=== PATIENT | female | born 1985 | race Asian ===

== ENCOUNTER → 2020-12-24 10:44 | Outpatient (CLI) | payer OTHER, SELFPAY ==
--- NOTE | 2020-12-24 10:46 | DI.US.S_ITS ---
PROCEDURE: US OB <= 14 WEEKS FETUS INDICATIONS: Initial dating and viability. OUTSIDE/PRIOR DATING DATA: Last menstrual period (LMP): 09/22/2020. LMP-based estimated date of delivery (JOSELO): 06/29/2021. First dating scan (date and location): 12/24/2020. Estimated date of delivery (JOSELO) from first dating scan: 06/22/2021. TECHNIQUE: Real-time scanning was performed of the fetus and maternal pelvic organs, with image documentation. Endovaginal scanning was also performed to better visualize the fetus and maternal ovaries. COMPARISON: None. FINDINGS: [place]-rump length 8.4 centimeters, corresponding to gestational age of 14 weeks 2 days. heart rate 150 beats per minute. Measurement variability in dating: +/- 4 weeks by LMP, +/- 7 days by mean sac diameter (use before 6 weeks gestation if crown-rump length not able to be measured), +/- 5 days by crown-rump length (up to 8 weeks 6 days gestation), +/- 7 days by crown-rump length (up to 13 weeks 6 days gestation). Maternal organs: Cervical length 4.5 centimeters. Ovaries unremarkable. IMPRESSION: Single live intrauterine gestation with estimated ultrasound age of 14 weeks 2 days. Dictated by: Victorino Monzon M.D. on 12/24/2020 at 11:24 Approved by: Victorino Monzon M.D. on 12/24/2020 at 11:26
[2020-12-24 11:46] LABS: Add Manual Diff / Slide Review NO; Basophils Absolute Auto 0 /uL (0-100); Basophils Percent Auto 0.3 % (0-2); Eosinophils Absolute Auto 300 /uL (0-450); Eosinophils Percent Auto 3.4 % (2-4); Hematocrit 37.3 % (36-46); Hemoglobin 12.3 g/dL (12.0-16.0); Lymphocytes Absolute Auto 2000 /uL (1100-4500); Lymphocytes Percent Auto 20.1 % (25-40); Mean Corpuscular HGB Conc 32.9 % (30-36); Mean Corpuscular Hemoglobin 29.2 PG (26-34); Mean Corpuscular Volume 88.6 fL (80-100); Monocytes Absolute Auto 700 /uL (0-900); Monocytes Percent Auto 6.4 % (3-14); Neutrophils Absolute Auto 7100 /uL (1500-7000); Neutrophils Percent Auto 69.8 % (50-75); Platelet Count 315 X10^3/uL (150-400); Red Blood Cell Count 4.21 X10^6/uL (4.0-5.2); Red Cell Distribution Width 13.5 % (11.6-14.8); White Blood Cell Count 10.2 X10^3/uL (4.5-11.0)
[2020-12-24 12:44] LABS: Appearance Urine UA CLEAR; Bilirubin Urine UA NEGATIVE (NEGATIVE); Color Urine UA YELLOW; Glucose Urine UA NEGATIVE (Negative); Ketones Urine UA TRACE (NEGATIVE); Leukocyte Esterase Urine UA NEGATIVE (NEGATIVE); Nitrite Urine UA NEGATIVE (Negative); Occult Blood Urine UA NEGATIVE (Negative); Protein Urine UA NEGATIVE (Negative); Urobilinogen Urine UA 0.2 E.U./dL (0.2); pH Urine UA 6.5 (4.5-8.0)
[2020-12-25 06:11] LABS: Varicella IgG Antibody 841 index (Immune >165)
[2020-12-25 07:46] LABS: RPR Screen Non Reactive (Non Reactive)
[2020-12-25 16:01] LABS: Hepatitis B Surface Antigen NEGATIVE s/c (NEGATIVE)
[2020-12-25 16:16] LABS: HIV 1 & 2 Ab/Ag 4th Gen Combo NEGATIVE (NEGATIVE); Hep C Virus Ab w/Reflex Quant NEGATIVE s/c (NEGATIVE)
== END ==
PROVIDERS: Referring Provider Obstetrics & Gynecology; Visit Provider Obstetrics & Gynecology
DX: Z34.81 Encounter for supervision of other normal pregnancy, first trimester (principal); Z3A.14 14 weeks gestation of pregnancy
CPT/HCPCS: 36415; 76801; 80055; 81003; 86787; 86803; 86850; 86900; 86901; 87086; 87389

== ENCOUNTER → 2021-01-23 14:15 | Outpatient (CLI) | payer OTHER, SELFPAY ==
[2021-01-26 14:36] LABS: Gest Age on Col Date 17.6 weeks (.); Insulin Dep Diabetes No (.); OSBR Risk 1IN 6301 (.); Results Report (.); Test Results *Screen Negative* (.)
== END ==
PROVIDERS: Referring Provider Obstetrics & Gynecology; Visit Provider Obstetrics & Gynecology
DX: O09.522 Supervision of elderly multigravida, second trimester (principal); Z36.0 Encounter for antenatal screening for chromosomal anomalies; Z3A.17 17 weeks gestation of pregnancy
CPT/HCPCS: 36415; 81420; 82105

== ENCOUNTER → 2021-02-18 12:02 | Outpatient (CLI) | payer OTHER, SELFPAY ==
--- NOTE | 2021-02-18 12:03 | DI.US.S_ITS ---
PROCEDURE: US OB >= 14 WEEKS FETUS INDICATIONS: 20 Week Anatomy Scan OUTSIDE/PRIOR DATING DATA: Last menstrual period (LMP): 09/22/2020. LMP-based estimated date of delivery (JOSELO): 06/30/2011. First dating scan (date and location): 12/24/2020. Estimated date of delivery (JOSELO) from first dating scan: 06/22/2021. TECHNIQUE: Real-time scanning was performed of the fetus, with image documentation and biometric measurements. Endovaginal scanning: No COMPARISON: [facility], OB <= 14 WEEKS FETUS, 12/24/2020, 10:56. FINDINGS: General: A single living intrauterine gestation is present. Presentation: Cephalic Placenta: Placental position is anterior , without previa. Amniotic fluid index: 12.5 cm, normal range is 5-24 cm. heart rate: 153 beats per minute. Maternal cervical canal: 3.9 cm long. Normal lower limit is 2.5 cm. biometrics: Biparietal diameter: 52 mm; 21 weeks 5 days Head circumference: 193 mm; 21 weeks 4 days Abdominal circumference: 170 mm; 22 weeks 0 days Femur length: 38 mm; 22 weeks 1 day Clinically estimated gestational age: 22 weeks 2 days Composite gestational age from present scan: 21 weeks 6 days Estimated weight and percentile: 465 g, which is at the 28th percentile for gestational age Anatomic survey: Neuro: Ventricles are non-dilated at less than 10 mm. Cisterna magna is normal at 3-11 mm. Cerebellum is normal in size and morphology. Nuchal skin fold: Nuchal fold measures 10 mm in thickness. Face: Nose and lips, facial profile are normal. Spine: No evidence for spina bifida. Heart: 4-chambered heart is present, with normal ventricular outflow tracts. Diaphragm: Diaphragm is intact. Stomach: Left-sided stomach is present. Kidneys: No hydronephrosis. Normal is less than 5 mm in 2nd trimester, less than 7 mm in 3rd trimester. Cord: 3-vessel cord has orthotopic insertion. Bladder: Normal in size. Extremities: All 4 extremities identified. IMPRESSION: 1. Single living intrauterine gestation. 2. Enlarged nuchal fold measurement. Follow-up ultrasound and clinical evaluation is recommended for further assessment. We strive to produce accurate, complete, and clear reports of imaging services. To assist us in improving patient care, this report was composed using standard report templates and voice recognition software. Therefore, it may contain abnormal punctuation, insertions and/or omissions. Occasional wrong-word or sound-alike substitutions may occur. Though we review the report and make efforts to correct it, we do recommend that the report be read carefully in proper context to recognize any text inaccuracies. Dictated by: Leatha Restrepo M.D. on 02/18/2021 at 14:38 Approved by: Leatha Restrepo M.D. on 02/18/2021 at 14:43
== END ==
PROVIDERS: Referring Provider Obstetrics & Gynecology; Visit Provider Obstetrics & Gynecology
DX: Z34.82 Encounter for supervision of other normal pregnancy, second trimester (principal); Z3A.22 22 weeks gestation of pregnancy
CPT/HCPCS: 76811

== ENCOUNTER → 2021-05-18 09:08 | Outpatient (CLI) | payer OTHER, SELFPAY ==
--- NOTE | 2021-05-18 09:09 | DI.US.S_ITS ---
PROCEDURE: US OB FOLLOW UP INDICATIONS: SGA OUTSIDE/PRIOR DATING DATA: Last menstrual period (LMP): 09/22/2020 LMP-based estimated date of delivery (JOSELO): 06/29/2021 First dating scan (date and location): 12/24/2020 Estimated date of delivery (JOSELO) from first dating scan: 06/22/2021 The calculations are made using the ultrasound JOSELO of 06/22/2021 TECHNIQUE: Real-time scanning was performed of the fetus, with image documentation and biometric measurements. Endovaginal scanning: Performed for better visualization of the cervix. COMPARISON: [facility], OB >= 14 WEEKS FETUS, 02/18/2021, 12:32. FINDINGS: General: A single living intrauterine gestation is present. Presentation: Vertex Placenta: Placental position is anterior, without previa. Amniotic fluid index: 10.8 cm cm, normal range is 5-24 cm. Single deepest vertical pocket is 4.1 cm. heart rate: 157 beats per minute. Maternal cervical canal: 4.1 cm long. Normal lower limit is 2.5 cm. biometrics: Biparietal diameter: 8.9 cm, 36 weeks 0 days Head circumference: 31.5 cm, 35 weeks 3 days Abdominal circumference: 31.4 cm, 35 weeks 2 days Femur length: 6.8 cm, 34 weeks 6 days Clinically estimated gestational age: 35 weeks 0 days Composite gestational age from present scan: 35 weeks 3 days Estimated weight and percentile: 2637 grams, 55th percentile Other: Nuchal area is not well visualized. IMPRESSION: 1. Single live intrauterine with appropriate interval growth. 2. Estimated weight 2637 grams, 55th percentile for gestational age. 3. Amniotic fluid index within normal limits. We strive to produce accurate, complete, and clear reports of imaging services. To assist us in improving patient care, this report was composed using standard report templates and voice recognition software. Therefore, it may contain abnormal punctuation, insertions and/or omissions. Occasional wrong-word or sound-alike substitutions may occur. Though we review the report and make efforts to correct it, we do recommend that the report be read carefully in proper context to recognize any text inaccuracies. Dictated by: Tobin Khan M.D. on 05/18/2021 at 13:32 Approved by: Tobin Khan M.D. on 05/18/2021 at 13:36
== END ==
PROVIDERS: Referring Provider Obstetrics & Gynecology; Visit Provider Obstetrics & Gynecology
DX: O26.843 Uterine size-date discrepancy, third trimester (principal); Z3A.35 35 weeks gestation of pregnancy
CPT/HCPCS: 76816

== ENCOUNTER 2021-06-28 11:38 | Outpatient (CLI) | payer OTHER, SELFPAY | END 2021-06-28 12:29 | disposition home or self-care (01) | LOC: LABOR 11:47 → OB 06-30 15:14 | PROVIDERS: PCP Obstetrics & Gynecology; Referring Provider Obstetrics & Gynecology; Visit Provider Obstetrics & Gynecology | DX: Z03.71 Encounter for suspected problem with amniotic cavity and membrane ruled out (principal); Z3A.39 39 weeks gestation of pregnancy | CPT/HCPCS: 84112; G0378; G0379 ==

== ENCOUNTER 2021-06-29 09:33 | Outpatient (CLI) | payer OTHER, SELFPAY | END 2021-06-29 10:10 | disposition home or self-care (01) | LOC: LABOR 10:16 → OB 07-13 09:26 | PROVIDERS: PCP Obstetrics & Gynecology; Referring Provider Obstetrics & Gynecology; Visit Provider Obstetrics & Gynecology | DX: O47.1 False labor at or after 37 completed weeks of gestation (principal); Z3A.40 40 weeks gestation of pregnancy; O48.0 Post-term pregnancy | CPT/HCPCS: 59025; G0378; G0379 ==

== ENCOUNTER 2021-06-30 15:39 | Inpatient (IN) | payer OTHER, SELFPAY ==
[2021-06-30 19:20] LABS: COVID19 -Nasal RAPID Negative (Negative)
--- NOTE | 2021-06-30 19:42 | P.HPOB_ITS ---
OB HPI Date/Time Date of admission: 06/30/21 Date Patient Seen: 06/30/21 Time Patient Seen: 19:42 History of Present Condition Chief complaint: LABOR : 2 Para: 1 Estimated Date of Delivery: 06/29/21 Estimated Gestational Age (weeks): 40+1 Narrative: Geovanna Sheikh is a 35 year old JOSELO 06/29/2021 admitted this evening with SROM @ 1800 and RUC. GBS negative. course uneventful thus far. Indications Other reason(s) for admission: Latent phase labor with SROM @ 1800 06/30/2021 History of Present care: good care Dating criteria: LMP confirmed by 1st trimester US Ultrasounds: normal 1st trimester US and normal mid trimester US Obstetrical complications: none Medical complications: none Preadmission Labs Blood type: O (+) positive -: Antibody screen: negative, GBS status: negative, HBsAG: negative, HIV: negative and RPR/VDLR: negative -: Chlamydia screen: not detected and Gonorrhea screen: not detected -: Rubella: immune and Varicella: immune HCT: 37.3 HCAB: negative PAP: Normal Narrative: 1 hr. GDM screen declined by patient Prior (ies) History: x 1; no complications or issues Evaluation Evaluation Baseline heart rate: 140 Variability: Moderate (11-25) monitor accelerations: Present Monitor Decelerations: Absent Contraction Frequency (minutes): 5 Uterine Contraction Intensity: Moderate Category of Tracing: Reactive Status: Category l Dilation (cm): 3 Effacement (%): 80 Dilation: 3-4 cm Effacement: >/=80% station: -2 Position of cervix: posterior Consistency: soft Hernandez score: 8 Non-invasive Membranes Rupture Test: positive [facility] Medical History (Updated 06/24/21 @ 11:31 by Grey Kennedy MD) Anemia (~2000) Family history of diabetes mellitus GERD (gastroesophageal reflux disease) (~2003) Seasonal allergies Family History (Updated 12/18/20 @ 13:04 by Zuleika Nazario RN) Mother Hypertension Arthritis Diabetes mellitus Father Diabetes mellitus Kidney failure Hyperlipidemia Grandmother Ascites Grandfather Hypertension Aneurysm Grandmother No problems noted. Grandfather Unknown family medical history Sister Diabetes mellitus Social History marital status: number of children: 1 household members: family and children lives independently: Yes caregiver/support person: No housing: apartment pets and animals: Yes (Guinea pigs. 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 ) substance use type: does not use during the past year weight has: remained stable well-balanced diet: about half the time daily servings fruits/ve-1 caffeine: Yes (Stopped coffee with - aversion. Occasional soda. ) Type(s) of exercise: walking and normal ROM and activity frequency: daily duration: 30-45 minutes/day Meds Home Medications and Allergies Home Medications Medication Instructions Recorded Confirmed Type prenat.vits,jaswant,xsm-bdfo-wzhms 1 tab PO DAILY 12/18/20 06/30/21 History Allergies Allergy/AdvReac Type Severity Reaction Status Date / Time No Known Drug Allergies Allergy Verified 05/20/21 10:54 Review of Systems Review of Systems Narrative: Problem-specific ROS positives included in HPI OB Exam HENMT Head: normal to inspection, normocephalic and atraumatic Eyes General: appearance normal, both eyes and all related structures Resp Effort & Inspection: normal respiratory effort and able to speak in complete sentences Auscultation: clear to auscultation bilaterally Cardio Rate: regular rate Rhythm: regular rhythm Heart Sounds: S1 normal and S2 normal Uterus Location (Fundal Height): 35 Estimated Weight (lbs): 8 Amniotic Fluid: clear Objective Labs Result Diagrams: 06/30/21 19:30 Labs: Laboratory Results - last 24 hr 06/30/21 19:00 SARS-CoV-2 (PCR) Negative Assessment and Plan Assessment and Plan Assessment and Plan narrative: ASSESSMENT 1. Intrauterine gestation, [place], vertex, 40+ 1 weeks gestational age 2. SROM, 1800, for 02/2022 3. GBS negative status PLAN 1. Admit for labor and delivery 2. Expectant management of labor; patient does not desire CIRO or other inte rventions if they are not absolutely necessary 3. See orders Time Spent with Patient Total time spent with greater than 50% in coordination of care (as documented) at patient's floor/unit and/or counseling patient:: less than 15 minutes
[2021-06-30 19:45] LABS: Hematocrit 37.7 % (36-46); Hemoglobin 12.9 g/dL (12.0-16.0); Mean Corpuscular HGB Conc 34.3 % (30-36); Mean Corpuscular Hemoglobin 29.8 PG (26-34); Platelet Count 267 X10^3/uL (150-400); Red Blood Cell Count 4.33 X10^6/uL (4.0-5.2); Red Cell Distribution Width 14.1 % (11.6-14.8); White Blood Cell Count 12.3 X10^3/uL (4.5-11.0)
[2021-06-30 19:48] LABS: Add Manual Diff / Slide Review YES
[2021-06-30 20:03] LABS: Neutrophils Absolute Manual 9594 /uL (3000-5900); Total Cells Counted 100
[2021-06-30] MEDS: fentaNYL 100 MCG/2 ML INJ 50 MCG IV ×2 (21:35→22:35)
[2021-06-30] MEDS: LACTATED RINGERS 1,000 ML 100 ML IV (21:45)
[2021-07-01] MEDS: fentaNYL 100 MCG/2 ML INJ 50 MCG IV ×2 (00:13→03:55)
[2021-07-01] MEDS: LACTATED RINGERS 1,000 ML 100 ML IV ×2 (06:42→08:28)
--- NOTE | 2021-07-01 07:36 | PM.OBPNLAB ---
Date/Time Date Patient Seen: 07/01/21 Time Patient Seen: 07:20 Pain Control Pain control: narcotic analgesia Comments: Pain temporarily relieved with Fentanyl but patient is exhausted and contractions have spaced out through the night. Pelvic Exam Dilation (cm): 6 Effacement (%): 90 station: -1 Amniotic membrane status: Ruptured Contractions Contractions on admission: irregular Monitor mode: External Contraction frequency (min): 6 Contraction duration (min): 1 Contraction pattern: Irregular Contraction phase: Resting Contraction intensity: Moderate Status status: Category l Heart Rate Baseline: 135 Monitor Accelerations: Present Monitor Decelerations: Absent Monitor Variability: Moderate Comments: Minimal variability following Fentanyl doses Assessment and Plan Assessment: active labor Comments: Patient request CIRO for pain relief. Once she's comfortable, will begin augmentation.
[2021-07-01] MEDS: FENT 2MCG/ML BUPIV 0.125% EPI 200 MCG/100 ML PLAST..BAG 6 MCG EPIDURAL (08:10)
--- NOTE | 2021-07-01 10:00 | PM.AN.REGBLK ---
Regional Block Pre-procedure Procedure: Continuous Lumbar Epidural for L&D Attending OB provider: Grey Kennedy PMH/ROS narrative: term labor, no complications. Labs: Hct 37.7 % (36-46) 06/30/21 19:30 Plt Count 267 X10^3/uL (150-400) 06/30/21 19:30 Medications: Current Medications Generic Name Dose Route Start Last Admin Trade Name Freq PRN Reason Stop Dose Admin Carboprost Tromethamine 250 mcg 06/30/21 18:53 Carboprost 250 Mcg/Ml Ampul IM Q90M PRN Bleeding Fentanyl 50 mcg 06/30/21 20:32 07/01/21 03:55 Fentanyl 100 Mcg/2 Ml Inj IV 50 mcg Q1H PRN Administration Pain, Moderate (4-6) Lactated Ringer's 1,000 mls @ 100 mls/hr 06/30/21 19:00 07/01/21 08:28 Lactated Ringers IV 100 mls/hr CONT LUBNA Administration Oxytocin/Lactated Ringer's 30 unit in 500 mls @ 200 mls/hr 06/30/21 18:53 Oxytocin Premix IV CONT PRN Bleeding Protocol Tranexamic Acid 1,000 mg/ 100 mls @ 200 mls/hr 06/30/21 18:53 Sodium Chloride IV NOW PRN Bleeding Methylergonovine Maleate 0.2 mg 06/30/21 18:53 Methylergonovine 0.2 Mg Tablet PO Q6HR PRN Heavy Bleeding Methylergonovine Maleate 0.2 mg 06/30/21 18:53 Methylergonovine 0.2 Mg/Ml Vial IM NOW PRN Bleeding Misoprostol 800 mcg 06/30/21 18:53 Misoprostol 200 Mcg Tablet NH NOW PRN Bleeding Misoprostol 1,000 mcg 06/30/21 18:53 Misoprostol 200 Mcg Tablet NH NOW PRN Bleeding Misoprostol 400 mcg 06/30/21 18:53 Misoprostol 200 Mcg Tablet SL NOW PRN Bleeding Naloxone HCl 0.2 mg 06/30/21 20:32 Naloxone 0.4 Mg/Ml Vial IV Q2MIN PRN Opiate Reversal Oxytocin 10 unit 06/30/21 18:53 Oxytocin 10 Unit/Ml Vial IM NOW PRN Bleeding Allergies: Allergies Allergy/AdvReac Type Severity Reaction Status Date / Time No Known Drug Allergies Allergy Verified 05/20/21 10:54 Procedure Insertion date: 07/01/21 Insertion time: 08:00 Prep/Local: betadine x3 and 1% lidocaine Interspace: L3-4 Patient position: sitting Needle: 18 gauge Hustead (CSE: 27g pencan through Hustead, clear CSF, 1mL 0.25% bupiv MPF) Loss of resistance with: saline WALTER at (cm): 5 Catheter placed at SKIN (cm): 10 Catheter in SPACE (cm): 5 Insertion: No CSF, No Blood, No Paresthesia with insertion, No Paresthesia with injection and No Test dose reaction Initial Medications TEST DOSE time: 08:01 TEST DOSE: 1.5% lidocaine with epinephrine 1:200k (mL): 3 BOLUS DOSE time: 08:14 BOLUS DOSE (mL): 5 BOLUS DOSE med: other (infusate) Infusion INFUSION: 0.125% bupivacaine and with fentanyl 2 mcg/mL Initial rate (mL/hr): 6 Post-procedure Anesthesia time START: 07:48 Anesthesia time END: 13:50 Post-procedure Anesthesia Assessment: Yes CV function: HR/BP stable, Yes Resp function: RR/sat/airway adequate, Yes Mental status appropriate and No Anesthesia complications
[2021-07-01] MEDS: OXYTOCIN PREMIX 30 UNIT/500 ML PLAST..BAG IV (10:43)
--- NOTE | 2021-07-01 13:18 | PM.OBPNLAB ---
Date/Time Date Patient Seen: 07/01/21 Time Patient Seen: 12:50 Pain Control Pain control: tolerating well and epidural Comments: Patient is very comfortable Pelvic Exam Dilation (cm): 9 Effacement (%): 100 station: +1 Amniotic membrane status: Ruptured Comments: Small rim present at 2:00 a.m. Contractions Contractions on admission: irregular Monitor mode: External Pitocin rate (mU/min): 9 Contraction frequency (min): 3 Contraction duration (min): 1 Contraction pattern: Irregular Contraction phase: Resting Contraction intensity: Moderate Status status: Category ll Monitor Accelerations: Present Monitor Decelerations: Early, Episodic and Variable Monitor Variability: Minimal Assessment and Plan Assessment: induction ongoing Plan: continuous present management Comments: Will start pushing shortly and anticipate .
--- NOTE | 2021-07-01 14:27 | P.PCNOB_ITS ---
Labor & Delivery Delivery date: 07/01/21 Intrapartal Events: Hypotonic Dysfunction Cervical ripening method: none Induction method: none Delivery augmentation: pitocin Delivery monitor: external FHT and external uterine Route of delivery: Episiotomy description: None L&D Laceration Description: Perineal - 2nd Degree Estimated blood loss (mL): 250 Anesthesia Type: Epidural Complications: None Narrative: Patient admitted on the evening of 06/30/2021 and initially planned minimal intervention labor. Patient allowed to labor spontaneously after SROM at 1800 on 06/30/2021 but contractions lessened and no significant change was noted in her cervical exam. On the morning of 07/01/2021 however the patient requested epidural anesthesia and Pitocin augmentation was initiated. Patient entered the 2nd stage and after a brief 2nd stage delivered spontaneously over an intact perineum a viable male infant with Apgars of 9/9, weight 3370 g (7 lb 6.9 oz). A single cord around the neck was noted and reduced after delivery of the infant. No shoulder dystocia was experienced. The placenta was delivered spontaneously with gentle cord traction and found to be intact with 3 vessels. Skin to skin contact was initiated immediately following delivery and delayed cord clamping utilized. Once the umbilical cord was doubly clamped and cut, a cord blood specimen was obtained for routine studies. During the course of delivery the patient sustained deep second-degree perineal laceration along the lines of a prior left mediolateral episiotomy. Repair was accomplished in the usual fashion with 2-0 chromic catgut suture and 2-0 Vicryl interrupted stitch to reconstruct the perineal body. The sphincter was intact and did not require repair but a large internal hemorrhoid was seen to have prolapsed thro ugh the anus and apparently the hemorrhoid has been present for quite some time and was actually present prior to her 1st delivery. At the completion of the repair, reapproximation of all perineal tissues was excellent with minimal bruising. Mother and infant tolerated the delivery process well. Estimated blood loss was approximately 250 cc and no complications were experienced. [place] Baby 1: Infant gender: Male Presentation: vertex Position: Left Occiput Anterior Placenta delivery description: Spontaneous Cord Vessel Description: 3 Vessels and Nuchal Cord score (1 min): 9 score (5 min): 9 weight: 7 lb 6.873 oz Plan for aftercare: Routine care
[2021-07-01] MEDS: IBUPROFEN 600 MG TABLET PO ×2 (17:21→23:29)
[2021-07-01] MEDS: DOCUSATE 100 MG CAPSULE 200 MG PO (17:21)
[2021-07-02 05:01] LABS: Add Manual Diff / Slide Review NO; Basophils Absolute Auto 0 /uL (0-100); Basophils Percent Auto 0.1 % (0-2); Eosinophils Absolute Auto 100 /uL (0-450); Eosinophils Percent Auto 0.6 % (2-4); Hematocrit 29.3 % (36-46); Hemoglobin 9.8 g/dL (12.0-16.0); Lymphocytes Absolute Auto 2800 /uL (1100-4500); Lymphocytes Percent Auto 12.5 % (25-40); Mean Corpuscular HGB Conc 33.6 % (30-36); Mean Corpuscular Hemoglobin 29.3 PG (26-34); Mean Corpuscular Volume 87.1 fL (80-100); Monocytes Absolute Auto 1900 /uL (0-900); Monocytes Percent Auto 8.6 % (3-14); Neutrophils Absolute Auto 17700 /uL (1500-7000); Neutrophils Percent Auto 78.2 % (50-75); Platelet Count 238 X10^3/uL (150-400); Red Blood Cell Count 3.36 X10^6/uL (4.0-5.2); Red Cell Distribution Width 14.2 % (11.6-14.8); White Blood Cell Count 22.7 X10^3/uL (4.5-11.0)
[2021-07-02] MEDS: IBUPROFEN 600 MG TABLET PO (06:25)
[2021-07-02] MEDS: DOCUSATE 100 MG CAPSULE 200 MG PO (11:27)
[2021-07-02] MEDS: ACETAMINOPHEN 325 MG TABLET 650 MG PO (11:27)
--- NOTE | 2021-07-02 13:18 | P.DS_ITS ---
Discharge Providers Provider Date of admission: 06/30/21 15:39 Discharge Date: 07/02/21 Primary care physician: Grey Kennedy MD Consults: 07/01/21 16:34 Consult to General Surgery Routine Comment: Consulting Provider: [facility] Reason for consultation: Large prolapsed internal hemorrhoid; needs eval and F/U plan. Thanks. Has provider been notified: No 07/02/21 14:22 Consult to Strategy Execution Consultant Routine Comment: Discharge provider: Grey Kennedy MD Summary Hospital Course Date Patient Seen: 07/02/21 Time Patient Seen: 13:05 Diagnoses: Intrauterine gestation, Parish, 40+2 weeks EGA, delivered Internal hemorrhoids Hospital Course: Geovanna Sheikh is a 35 year old JOSELO 06/29/2021 admitted this evening with SROM @ 1800 and RUC. GBS negative. course uneventful.? The patient was permitted to enter spontaneous labor but she had minimal cervical change and on the morning of 06/30/2021 she opted for placement of a epidural and labor which provided excellent relief and Pitocin augmentation was initiated.?Patient admitted on the evening of 06/30/2021 and initially planned minimal intervention labor.? With augmentation, patient entered the 2nd stage and after a brief 2nd stage delivered spontaneously over an intact perineum a viable male infant with Apgars of 9/9, weight 3370 g (7 lb 6.9 oz).? At the time of delivery, a large prolapsed internal hemorrhoid was noted which reduced spontaneously following delivery.? Surgical consult placed but patient could not be seen prior discharge. ?Following delivery, the patient has experienced a prompt return of bowel and bladder function, she is ambulating independently, tolerating regular diet, and her pain is well controlled with oral pain medications.? She will be discharged at this time to home in an afebrile normotensive condition after being counseled regarding precautionary symptoms, limitations of activity, medications, and plans for follow-up.? Medications at discharge will include ibuprofen 600 mg p.o. every 6 hours and Colace 200 mg p.o. b.i.d. times 30 days.? Follow-up will be in 6 weeks or as needed and arrangements for her to be seen by surgery as an outpatient will be made by our office. Peripartum Data Infant Delivery Method: Natural Vaginal Laceration Description: Perineal - 2nd Degree Episiotomy description: None Procedures: Vaginal OB Delivery Continuous lumbar epidural complications: none 1: Gender: Male Disposition of : home Status at Discharge Cognitive/behavioral status at discharge: oriented Functional status at discharge: independent ambulation Overall status at discharge: patient is progressing back to baseline Time Spent with Patient Time attestation: Total time spent providing and/or coordinating discharge services: Time spent: Less than 30 minutes Objective Labs Result Diagrams: 07/02/21 04:37 Labs: Laboratory Results - last 24 hr 07/02/21 04:37 WBC 22.7 H D RBC 3.36 L Hgb 9.8 L Hct 29.3 L MCV 87.1 MCH 29.3 MCHC 33.6 RDW 14.2 Plt Count 238 Neut % (Auto) 78.2 H Lymph % (Auto) 12.5 L [place] % (Auto) 8.6 Eos % (Auto) 0.6 L Baso % (Auto) 0.1 Neut # (Auto) 80448 H Lymph # (Auto) 2800 [place] # (Auto) 1900 H Eos # (Auto) 100 Baso # (Auto) 0 Exam Const General: cooperative and comfortable Nutritional Appearance: average body habitus Orientation: alert and oriented x3 HENMT Head: normal to inspection, atraumatic and abrasion Ears: hearing grossly normal bilaterally Face and sinus: face symmetric Eyes General: appearance normal, both eyes and all related structures Conjunctivae: conjunctivae normal Sclera: sclerae normal EOM: EOM intact bilaterally Neck Neck: normal visual inspection Resp Effort & Inspection: normal respiratory effort and able to speak in complete sentences Auscultation: clear to auscultation bilaterally Cardio Rate: regular rate Rhythm: regular rhythm Heart Sounds: S1 normal, S2 normal and no murmurs GI Inspection: normal to inspection Palpation: soft and no hepatosplenomegaly Rectal Exam: visual inspection normal and other (Prolapsed hemorrhoid remains r educed) External Female Exam: other (Perineum intact, early healing with minimal bruising, lochia minimal) Extrem General: no calf tenderness Psych Appearance: grossly normal Mental Status: mental status grossly normal Speech and Movement: speech and movement normal Mood: congruent mood Affect: normal affect Attitude: cooperative Thought Process: normal Thought Content: normal Judgment: judgment good Discharge Plan Discharge Plan Patient Disposition: Home Provider Discharge Comment: Carefully review the written instructions you received when you were discharged from the hospital. Your follow-up appointment with me will be scheduled for 6 weeks following delivery and I look forward to seeing you then. If in the meanwhile however you have any issues, concerns, or problems, please feel free to contact me via the patient portal or through the office phone number [phone]. Discharge orders & Medications Prescriptions: New docusate sodium 100 mg Capsule 200 mg PO BID 30 Days Qty: 120 1RF ibuprofen 600 mg Tablet 600 mg PO Q6HR PRN (Reason: Pain, Mild (1-3)) Qty: 60 1RF Continued prenat.vits,jaswant,[id number] Tablet 1 tab PO DAILY 0RF No Action ketorolac 10 mg tablet 10 mg PO Q8H PRN (Reason: pain) Qty: 20 0RF Rx Instructions: take with food and water omeprazole magnesium 20 mg tablet,delayed release (DR/EC) 20 mg PO DAILY Qty: 20 0RF oxycodone-acetaminophen [Percocet] 5-325 mg tablet 1 tab PO Q8H PRN (Reason: pain) Qty: 14 0RF hydrocortisone 2.5 % cream 1 applic topical BID PRN (Reason: hemorrhoid) Qty: 28.35 0RF acetaminophen [Tylenol Arthritis Pain] 650 mg tablet extended release 650 mg PO Q6HR Qty: 30 0RF Follow up/Referrals: Grey Kennedy MD [Primary Care Provider] - (Follow up with Dr. Kennedy on @ 1000am) Discharge Health Status Multidrug resistant organism: No MDRO Diet/Activity/Treatments Diet: Diet as Tolerated Activity: As tolerated Skin/Wound/Dressing Care Report to your healthcare provider any signs of infection, such as:: chills, fever, increased pain, unusual drainage and unusual redness Dressing: N/A Visit Report/Discharge Packet Instructions: DI for Labor and Delivery, Vaginal , DI for and Nipple Soreness Stand Alone Forms: Discharge: Care Discharge Data Primary Care Provider: Grey Kennedy
[2021-07-02 14:56] VITALS: BP 109/69; PULSE 91; RESP 17; TEMP 36.8
== END 2021-07-02 15:40 | disposition home or self-care (01) | DRG 807 ==
PROVIDERS: Admitting Provider Obstetrics & Gynecology; PCP Obstetrics & Gynecology; Referring Provider Obstetrics & Gynecology; Visit Provider Obstetrics & Gynecology
DX: O42.02 Full-term premature rupture of membranes, onset of labor within 24 hours of rupture (principal); Z37.0 Single live birth; Z3A.40 40 weeks gestation of pregnancy; O48.0 Post-term pregnancy; O70.1 Second degree perineal laceration during delivery; O99.891 Other specified diseases and conditions complicating pregnancy; K64.8 Other hemorrhoids; O69.81X0 Labor and delivery complicated by cord around neck, without compression, not applicable or unspecified; Z20.822 Contact with and (suspected) exposure to COVID-19
CPT/HCPCS: 01967; 36415; 59025; 59050; 59400; 84112; 85007; 85025; 86850; 86900; 86901; 87635; C9803; G0378; G0379; J2590; J3010

== ENCOUNTER 2021-07-05 13:58 | Emergency (ER) | payer OTHER, SELFPAY ==
[2021-07-05 14:07] VITALS: BP 125/78; PULSE 86; RESP 18; TEMP 36.4; O2SAT 100; BMI 26.0
--- NOTE | 2021-07-05 14:14 | ED_ITS ---
HPI - Skin/Abscess/Foreign Bdy <Denita Andersen, FOOTWEAR SALES COORDINATOR - Last Filed: 07/05/21 19:09> General Chief complaint: Skin/Abscess/Foreign Body Stated complaint: prolapsed hemmorroid Time Seen by Provider: 07/05/21 14:14 Source: patient Mode of arrival: Ambulatory Limitations: no limitations History of Present Illness HPI narrative: This is a 35-year-old female who had a normal vaginal delivery on 07/02/2021 who presents to the emergency department today for complications with an internal and prolapsed hemorrhoid which is increasing in size and causing worsening pain. Patient states it is approximately the size of a golf ball, she was to follow-up with a general surgeon after delivery for removal of this, the surgeon reportedly did not see the patient while she was in the hospital, she presents 3 days after vaginal delivery infant for ongoing pain, inability to sit down, walking, having bowel movements. Patient's OBGYN is Dr. Kennedy. Patient states that she has tried topical lidocaine which has not helped, she is taking ibuprofen 800 mg every 6 hours, she is currently , has tried ice a couple times, denies any discharge from the hemorrhoid, states it is soft and not hard. She states that all movement is painful, she is not sleeping well due to the pain. Related Data Home Medications Medication Instructions Recorded Confirmed prenroxy.vits,jaswant,[id number] 1 tab PO DAILY 12/18/20 06/30/21 Previous Rx's Medication Instructions Recorded docusate sodium 100 mg capsule 200 mg PO BID 30 Days #120 cap 07/02/21 ibuprofen 600 mg tablet 600 mg PO Q6HR PRN #60 tab 07/02/21 acetaminophen 650 mg 650 mg PO Q6HR #30 tab 07/05/21 tablet,extended release (Tylenol Arthritis Pain) hydrocortisone 2.5 % topical cream 1 applic TOPICAL BID PRN #28.35 g 07/05/21 hydrocortisone acetate 25 mg 25 mg KS BID 14 Days #24 ea 07/05/21 rectal suppository ketorolac 10 mg tablet 10 mg PO Q8H PRN #20 tab 07/05/21 omeprazole magnesium 20 mg 20 mg PO DAILY #20 tab 07/05/21 tablet,delayed release oxycodone-acetaminophen 5 mg-325 1 tab PO Q8H PRN #14 tab 07/05/21 mg tablet (Percocet) prednisone 20 mg tablet 20 mg PO DAILY 5 Days #5 tab 07/05/21 Allergies Allergy/AdvReac Type Severity Reaction Status Date / Time No Known Drug Allergies Allergy Verified 05/20/21 10:54 Review of Systems <SINDI Mobley - Last Filed: 07/05/21 19:09> Review of Systems Narrative: General: denies fever, chills, malaise, sweats, fatigue Head/Neck: denies headache, neck pain, dizziness Eyes: denies visual changes, eye pain Cardio: denies chest pain, palpitations, edema Respiratory: denies dyspnea, cough, orthopnea GI: denies abdominal pain, nausea, vomiting, or diarrhea : denies dysuria, hematuria, urinary retention, frequency or incontinence 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: Still having some vaginal spotting, dark brown in color, very large prolapsed hemorrhoid which is very tender, all positions are painful, lying down is the only position she tolerated MSK: denies joint pain, muscle weakness Skin: denies rash, itching, + large hemorrhoid Neuro: denies numbness, tingling Patient History <SINDI Mobley - Last Filed: 07/05/21 19:09> Medical History Anemia (~2000) Family history of diabetes mellitus GERD (gastroesophageal reflux disease) (~2003) Seasonal allergies Family History Mother Hypertension Arthritis Diabetes mellitus Father Diabetes mellitus Kidney failure Hyperlipidemia Grandmother Ascites Grandfather Hypertension Aneurysm Grandmother No problems noted. Grandfather Unknown family medical history Sister Diabetes mellitus Social History marital status: number of children: 1 household members: family and children lives independently: Yes caregiver/support person: No housing: apartment pets and animals: Yes (Guinea pigs. 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 ) substance use type: does not use during the past year weight has: remained stable well-balanced diet: about half the time daily servings fruits/ve-1 caffeine: Yes (Stopped coffee with - aversion. Occasional soda. ) Type(s) of exercise: walking and normal ROM and activity frequency: daily duration: 30-45 minutes/day Smoking Status: Never smoker Substance Use Type: does not use Exam <SINDI Mobley - Last Filed: 07/05/21 19:09> Narrative Exam Narrative: Independently reviewed vitals signs and nursing notes. General: cooperative, comfortable, in no acute distress, well developed and well groomed Head: atraumatic, symmetrical facial expressions Neck: supple, atraumatic, without lymphadenopathy. Eyes: pupils equal round and reactive, EOMI, conjunctiva normal Nose: nares patent, no rhinorrhea Mouth/Throat: uvula midline, moist mucus membranes Cardiovascular: regular rate and rhythm, no peripheral edema, warm extremities Respiratory: normal effort, able to speak in complete sentences, no audible wheezing, stridor, or rales. No retractions or tachypnea. GI: abdomen soft, nontender to palpation, nondistended, no masses, no exquisite tenderness with exam, without guarding or rebound. 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: Dark brown vaginal spotting, peripad in place, hemorrhoid is large, prolapse, soft, purple, tender to palpation, approximately the size of a golf ball, no open wound MSK: moves all extremities, ambulatory w/steady gait, neurovascularly intact, no weakness Skin: brisk capillary refill, no rash, no erythema Neuro: normal speech and cognition, A&O x3, normal tone Psych: mental status is grossly normal, congruent mood, normal affect, pleasant and cooperative Initial Vital Signs Initial Vital Signs: Vital Signs Temperature 97.6 F 07/05/21 14:07 Pulse Rate 86 07/05/21 14:07 Respiratory Rate 18 07/05/21 14:07 Blood Pressure 125/78 07/05/21 14:07 Pulse Oximetry 100 07/05/21 14:07 <Cyndi Baron DO - Last Filed: 07/07/21 07:24> Initial Vital Signs Initial Vital Signs: Vital Signs Temperature 97.6 F 07/05/21 14:07 Pulse Rate 86 07/05/21 14:07 Respiratory Rate 18 07/05/21 14:07 Blood Pressure 125/78 07/05/21 14:07 Pulse Oximetry 100 07/05/21 14:07 Course <SINDI Mobley - Last Filed: 07/05/21 19:09> Orders Ordered: Discontinued Medications Acetaminophen (Acetaminophen 325 Mg Tablet) 650 mg PO NOW ONE Stop: 07/05/21 14:39 Last Admin: 07/05/21 14:58 Dose: 650 mg Documented by: KATIA Hydrocortisone (Hydrocortisone 25 Mg Supp) 25 mg KS NOW ONE Stop: 07/05/21 14:37 Last Admin: 07/05/21 14:58 Dose: 25 mg Documented by: KATIA Hydrocortisone (Hydrocortisone 2.5% Cream 30 Gm) 1 applic TOP NOW ONE Stop: 07/05/21 14:38 Last Admin: 07/05/21 14:58 Dose: 1 applic Documented by: KATIA Oxycodone/Acetaminophen (Oxycodone/Acetaminophen 5/325 Tablet) 1 tab PO NOW ONE Stop: 07/05/21 14:39 Last Admin: 07/05/21 14:58 Dose: 1 tab Documented by: KATIA Oxycodone/Acetaminophen (Oxycodone/Apap 5/325 Prepack) 1 bottle MISC SEEINSTR ONE Stop: 07/05/21 15:32 Last Admin: 07/05/21 15:42 Dose: 1 bottle Documented by: KATIA Prednisone (Prednisone 20 Mg Tablet) 20 mg PO NOW ONE Stop: 07/05/21 14:50 Last Admin: 07/05/21 14:58 Dose: 20 mg Documented by: KATIA Consultations Consultation #1: Consult with Dr. Little who is on-call for General surgery who recommends topical measures with hydrocortisone cream, suppositories, Sitz baths and he would be willing to see her as an outpatient for surgical treatment as needed. Vital Signs Vital signs: Vital Signs - 8 hr 07/05/21 14:07 07/05/21 15:51 Temperature 97.6 F Pulse Rate 86 85 Respiratory Rate 18 16 Blood Pressure 125/78 122/88 Pulse Oximetry 100 99 <Cyndi Baron DO - Last Filed: 07/07/21 07:24> Orders Ordered: Discontinued Medications Acetaminophen (Acetaminophen 325 Mg Tablet) 650 mg PO NOW ONE Stop: 07/05/21 14:39 Last Admin: 07/05/21 14:58 Dose: 650 mg Documented by: KATIA Hydrocortisone (Hydrocortisone 25 Mg Supp) 25 mg KS NOW ONE Stop: 07/05/21 14:37 Last Admin: 07/05/21 14:58 Dose: 25 mg Documented by: KATIA Hydrocortisone (Hydrocortisone 2.5% Cream 30 Gm) 1 applic TOP NOW ONE Stop: 07/05/21 14:38 Last Admin: 07/05/21 14:58 Dose: 1 applic Documented by: KATIA Oxycodone/Acetaminophen (Oxycodone/Acetaminophen 5/325 Tablet) 1 tab PO NOW ONE Stop: 07/05/21 14:39 Last Admin: 07/05/21 14:58 Dose: 1 tab Documented by: KATIA Oxycodone/Acetaminophen (Oxycodone/Apap 5/325 Prepack) 1 bottle MISC SEEINSTR ONE Stop: 07/05/21 15:32 Last Admin: 07/05/21 15:42 Dose: 1 bottle Documented by: KATIA Prednisone (Prednisone 20 Mg Tablet) 20 mg PO NOW ONE Stop: 07/05/21 14:50 Last Admin: 07/05/21 14:58 Dose: 20 mg Documented by: KATIA Vital Signs Vital signs: Vital Signs - 8 hr 07/05/21 14:07 07/05/21 15:51 Temperature 97.6 F Pulse Rate 86 85 Respiratory Rate 18 16 Blood Pressure 125/78 122/88 Pulse Oximetry 100 99 MDM - Skin/Abscess/Foreign Bdy <SINDI Mobley - Last Filed: 07/05/21 19:09> MDM Narrative Medical decision making narrative: This is a 35-year-old female who is 3 days status post a vaginal delivery with a grade 2 vaginal laceration and a large internal hemorrhoid that has prolapsed who presents to the emergency department complaining of worsening pain, worsening swelling and this is affecting her daily life since she is not able to sit very easily and she is nursing a new burn. She is , is a , denies any red blood on her peripad, states that she is still spotting. On exam, patient does have a very large prolapsed hemorrhoid, it is soft to palpation, very tender, no open wound or discharge coming from the hemorrhoid. No surrounding erythema or signs of infection. Consultation with Dr. Little who recommends starting with topical hydrocortisone and padcicles Made of witch nasreen and frozen for cool relief. Patient was given a suppository in the emergency department, topical hydrocortisone was applied 2.5%, she is already on stool softeners, she was given oral Toradol and Percocet for pain, and a 5 day course of 20 mg each day prednisone. She was also given Prilosec for ulcer prevention while on steroids and anti-inflammatories. Patient understands the recommendations from surgery and from myself, she will follow-up with Dr. Kennedy and Dr. Little accordingly. Patient is appropriate and amenable to discharge home. Vital signs are stable on repeat examination is unremarkable. Patient has been informed of results. Patient has been given strict return to ER precautions for any new or worsening symptoms. Patient understands to follow up closely with outpatient providers as instructed. Patient understands plan and agrees to discharge home. All questions and concerns answered at this time. Discharge Plan Departure Patient Disposition: Home Clinical Impression: Hemorrhoid prolapse Instructions: Hemorrhoids Activity Restrictions/Additional Instructions: *You have been diagnosed with [a prolapsed internal hemorrhoid] I am sorry for how painful, frustrating, and uncomfortable that this must be for you at all times. Dr. Little from general surgery recommends to treat this with your topical measures including the suppositories, cream, anti-inflammatories, and oral steroid until this gets better and follow-up with him in the next 2-4 weeks. He says that these treatments usually improve symptoms so much that it is best to have a procedure to remove these at a point when they are not engorged. Since it is soft and not a thrombosed clot, it can be absorbed back into the body, and these topical measures should reduce the inflammation enough to allow that to go down. Please do Sitz baths 1 to 2 times a day, this is good for the vaginal laceration as well and will help heal the tissue. Please use the pain medicines as needed, try some padcicles made out of witch nasreen and place them in the freezer. Please take that Toradol every 6 hours as needed for pain, you may combine this with Tylenol 650 mg every 6 hours as needed for pain, in addition to these 2 things, you may take 1 Percocet every 6 hours as needed for your pain for maximum Tylenol dose of 4 g in 24 hours. Please follow-up with Dr. Kennedy at your next appointment, you may call and schedule an appointment with Dr. Little for evaluation of your internal hemorrhoids but he recommends trying these therapies to see how it goes down in at least 1 week before having surgery. He would be happy to see you at that point. Please return to the emergency department for any worsening of this, any difficulty with pain control, please continue to use your stool softeners. I hope you start feeling better soon. I will send your chart to Dr. Kennedy and to Dr. Little. I have sent omeprazole to the pharmacy to help protect her stomach while on steroids and anti-inflammatories. Please try to take all these kinds of medications with food and water, except for the omeprazole, take that 1st thing in the morning on an empty stomach. This will help prevent you from an ulcer and from any heartburn. *What to do: *Please continue to take your regular medications as directed. [ x] New medication prescriptions sent to your pharmacy: [ DOD] [ ] New medication written as a paper prescription [ ] No new medications given *Please follow up with your primary care provider in 2-3 days, call for an appointment. Let them know you were seen in the Emergency Department and that we asked that you be seen for follow-up. We will electronically transmit a record of today's note if your PCP is in our system *If you do not have a primary care provider please contact [phone] to establish care with one of [facility] primary care providers. *Return to Emergency Department if you should have any new, worsening or concerning symptoms, such as [fever greater than 101F, chills, worsening pain, persistent vomiting or other bothersome symptoms] Prescriptions: New hydrocortisone acetate 25 mg suppository 25 mg KS BID 14 Days Qty: 24 0RF ketorolac 10 mg tablet 10 mg PO Q8H PRN (Reason: pain) Qty: 20 0RF Rx Instructions: take with food and water prednisone 20 mg tablet 20 mg PO DAILY 5 Days Qty: 5 0RF omeprazole magnesium 20 mg tablet,delayed release (DR/EC) 20 mg PO DAILY Qty: 20 0RF oxycodone-acetaminophen [Percocet] 5-325 mg tablet 1 tab PO Q8H PRN (Reason: pain) Qty: 14 0RF hydrocortisone 2.5 % cream 1 applic topical BID PRN (Reason: hemorrhoid) Qty: 28.35 0RF acetaminophen [Tylenol Arthritis Pain] 650 mg tablet extended release 650 mg PO Q6HR Qty: 30 0RF No Action prenat.vits,jaswant,[id number] Tablet 1 tab PO DAILY 0RF docusate sodium 100 mg Capsule 200 mg PO BID 30 Days Qty: 120 1RF ibuprofen 600 mg Tablet 600 mg PO Q6HR PRN (Reason: Pain, Mild (1-3)) Qty: 60 1RF Referrals: Johny Little MD [Physician] - 3-5 days Grey Kennedy MD [Primary Care Provider] - <Cyndi Baron DO - Last Filed: 07/07/21 07:24> Cosign ED Attending Coszachature Attestation: I was immediately available in the department for consultation. Documentation has been reviewed. Patient's case was discussed agree with current plan.
[2021-07-05] MEDS: HYDROCORTISONE 25 MG SUPP PR (14:58)
[2021-07-05] MEDS: HYDROCORTISONE 2.5% CREAM 30 GM 1 APPLIC TOP (14:58)
[2021-07-05] MEDS: predniSONE 20 MG TABLET PO (14:58)
[2021-07-05] MEDS: OXYCODONE/ACETAMINOPHEN 5/325 TABLET 1 TAB PO (14:58)
[2021-07-05] MEDS: ACETAMINOPHEN 325 MG TABLET 650 MG PO (14:58)
[2021-07-05] MEDS: OXYCODONE/APAP 5/325 PREPACK 1 BOTTLE MISC (15:42)
[2021-07-05 15:51] VITALS: BP 122/88; PULSE 85; RESP 16; O2SAT 99
== END 2021-07-05 15:54 | disposition home or self-care (01) ==
PROVIDERS: Emergency Provider Nurse Practitioner Critical Care Medicine; PCP Obstetrics & Gynecology
DX: O87.2 Hemorrhoids in the puerperium (principal)
CPT/HCPCS: 99283

== ENCOUNTER 2024-05-07 10:36 | Emergency (ER) | payer OTHER, SELFPAY ==
[2024-05-07 11:05] VITALS: BP 122/61; PULSE 87; RESP 18; TEMP 36.3; O2SAT 100; BMI 26.4
--- NOTE | 2024-05-07 12:02 | ED_ITS ---
<Statement entered by Alvin Sampson DO - 05/07/24 12:52> Dr. Sampson: I was immediately available in the department for consultation. I did not actually see the patient. HPI - Skin/Abscess/Foreign Bdy General Chief complaint: Skin/Abscess/Foreign Body Stated complaint: Hemorrhoid pain Time Seen by Provider: 05/07/24 11:28 History of Present Illness HPI narrative: 38-year-old female with past medical history hemorrhoids presents to the ED with a flare-up of hemorrhoids. Patient states she has been recently been more constipated, has increased weightlifting exercises, which might be contributing to a flare-up. Patient states that she is unable to reduce the hemorrhoid which is now very painful. No bleeding. Patient has had a thrombosed hemorrhoid 2 years ago after delivering her baby. The thrombosed hemorrhoid had to be surgically incised by Dr. Little. Related Data Home Medications Medication Instructions Recorded Confirmed prenat.vits,jaswant,[id number] 1 tab PO DAILY 12/18/20 07/16/21 Previous Rx's Medication Instructions Recorded docusate sodium 100 mg capsule 200 mg (2 x 100 mg) PO BID 30 days 07/02/21 #120 caps ibuprofen 600 mg tablet 600 mg PO Q6HR PRN Pain, Mild 07/02/21 (1-3) #60 tabs acetaminophen 650 mg 650 mg PO Q6HR #30 tabs 07/05/21 tablet,extended release (Tylenol Arthritis Pain) hydrocortisone 2.5 % topical cream 1 applic topical BID PRN 07/05/21 hemorrhoid #28.35 grams ketorolac 10 mg tablet 10 mg PO Q8H PRN pain #20 tabs 07/05/21 omeprazole magnesium 20 mg 20 mg PO DAILY ulcer prevention 07/05/21 tablet,delayed release #20 tabs oxycodone-acetaminophen 5 mg-325 1 tab PO Q8H PRN pain #14 tabs 07/05/21 mg tablet (Percocet) hydrocortisone 2.5 % topical 1 applic topical BID 6 days #20 05/07/24 ointment grams hydrocortisone acetate 25 mg 25 mg MO BID 6 days #12 ea 05/07/24 rectal suppository Allergies Allergy/AdvReac Type Severity Reaction Status Date / Time No Known Drug Allergies Allergy Verified 04/28/22 15:46 Review of Systems Constitutional Constitutional: Denies chills, Denies fatigue, Denies fever(s), Denies frequent falls, Denies lethargy and Denies weakness Eyes Eyes: Denies change in vision, Denies eye discharge, Denies irritation and Denies loss of vision ENT Ears, Nose, Mouth, and Throat: Denies change in voice, Denies dizziness, Denies neck pain, Denies sore throat and Denies throat swelling Cardiovascular Cardiovascular: Denies chest pain, Denies irregular heart rhythm, Denies lightheadedness, Denies palpitations, Denies dyspnea, Denies dyspnea on exertion and Denies orthopnea Respiratory Respiratory: Denies cough, Denies dyspnea, Denies dyspnea on exertion and Denies wheezing Gastrointestinal Gastrointestinal: Denies abdominal pain, Denies change in bowel habits, Denies diarrhea, Denies nausea and Denies vomiting Comments: Painful hemorrhoid Musculoskeletal Musculoskeletal: Denies neck pain and Denies numbness Integumentary/Breasts Skin/Breast: Denies pruritus, Denies erythema, Denies rash and Denies wounds Neurologic Neurologic: Denies behavioral changes, Denies confusion, Denies dizziness, Denies frequent falls, Denies loss of vision, Denies numbness and Denies we akness Psychiatric Psychiatric: Denies anxiety, Denies behavioral changes, Denies confusion, Denies depression, Denies homicidal ideation and Denies suicidal ideation Endocrine Endocrine: Denies fatigue, Denies flushing and Denies palpitations Hematologic/Lymphatic Hematologic/Lymphatic: Denies easy bruising Allergic/Immunologic Allergic/Immunologic: Denies urticaria, Denies throat swelling and Denies wheezing Patient History Medical History Anemia (~2000) Family history of diabetes mellitus GERD (gastroesophageal reflux disease) (~2003) Seasonal allergies Family History Mother Hypertension Arthritis Diabetes mellitus Father Diabetes mellitus Kidney failure Hyperlipidemia Grandmother Ascites Grandfather Hypertension Aneurysm Grandmother No problems noted. Grandfather Unknown family medical history Sister Diabetes mellitus Social History marital status: number of children: 1 household members: family and children lives independently: Yes caregiver/support person: No housing: apartment pets and animals: Yes (Gu[place] pigs. ) education level: college occupational status: unemployed current occupational exposures/hazards: No special clementina needs: No seatbelt use: always working smoke detector in home: Yes fire extinguisher in home: Yes do you feel safe at home: Yes Smoking Status: Never smoker second hand exposure: No alcohol intake: former substance use type: does not use during the past year weight has: remained stable well-balanced diet: about half the time daily servings fruits/ve-1 caffeine: Yes (Stopped coffee with - aversion. Occasional soda. ) Type(s) of exercise: walking and normal ROM and activity frequency: daily duration: 30-45 minutes/day Smoking Status: Never smoker Exam Narrative Exam Narrative: Const General:?cooperative, healthy appearing and comfortable HENIA Head:?normal to inspection Ears:?hearing grossly normal bilaterally Nose:?external nose normal Face and sinus:?normal facial exam and sinuses nontender Mouth:?oral mucosae normal Throat:?posterior oropharynx normal Eyes General:?appearance normal, both eyes and all related structures Neck Neck:?normal visual inspection and no lymphadenopathy noted Resp Effort & Inspection:?normal respiratory effort Auscultation:?clear to auscultation bilaterally Cardio Rate:?regular rate Rhythm:?regular rhythm GI Large, swollen, prolapsed hemorrhoid noted on external exam. Neuro General:?patient alert, patient awake and patient oriented x3 Initial Vital Signs Initial Vital Signs: Vital Signs Temperature 97.3 F L 05/07/24 11:05 Pulse Rate 87 05/07/24 11:05 Respiratory Rate 18 05/07/24 11:05 Blood Pressure 122/61 05/07/24 11:05 Pulse Oximetry 100 05/07/24 11:05 Oxygen Delivery Method Room Air 05/07/24 11:05 Course Vital Signs Vital signs: Vital Signs - 8 hr 05/07/24 11:05 Temperature 97.3 F L Pulse Rate 87 Respiratory Rate 18 Blood Pressure 122/61 Pulse Oximetry 100 Oxygen Delivery Method Room Air MDM - Skin/Abscess/Foreign Bdy MDM Narrative Medical decision making narrative: 38-year-old female with past medical history hemorrhoids presents to the ED with a flare-up of hemorrhoids. Physical exam is consistent with a large, swollen, prolapse hemorrhoid. Counseled patient regarding Sitz baths, hydrocortisone suppositories/creams, bowel regimen. Recommend she follow-up with Dr. Little if her symptoms do not improve in the next 2-3 days. ED return precautions discussed with patient. Patient verbalized understanding. Medical records reviewed: Yes Discharge Plan Departure Patient Disposition: Home Clinical Impression: Hemorrhoids Qualifiers: Hemorrhoid type: unspecified Qualified Code(s): K64.9 - Unspecified hemorrhoids Instructions: DI for Hemorrhoids Activity Restrictions/Additional Instructions: Evaluated in the ED today for a painful hemorrhoid. You are being prescribed hydrocortisone suppositories and ointment to calm the flare. Please also take MiraLax daily, along with a fiber supplement such as Metamucil and stool softener such as docusate. It is critical that you avoid straining, avoid constipation. If your symptoms do not improve in the next 2 3 days, please follow-up with Dr. Little who you have seen prior to this for the same complaint. Return to the ED if you have worsening symptoms. Prescriptions: New hydrocortisone acetate 25 mg suppository 25 mg MO BID 6 Days Qty: 12 0RF hydrocortisone 2.5 % ointment 1 applic topical BID 6 Days Qty: 20 0RF No Action prenat.vits,jaswant,[id number] Tablet 1 tab PO DAILY ketorolac 10 mg tablet 10 mg PO Q8H PRN (Reason: pain) Qty: 20 0RF Rx Instructions: take with food and water omeprazole magnesium 20 mg tablet,delayed release (DR/EC) 20 mg PO DAILY Qty: 20 0RF oxycodone-acetaminophen [Percocet] 5-325 mg tablet 1 tab PO Q8H PRN (Reason: pain) Qty: 14 0RF hydrocortisone 2.5 % cream 1 applic topical BID PRN (Reason: hemorrhoid) Qty: 28.35 0RF acetaminophen [Tylenol Arthritis Pain] 650 mg tablet extended release 650 mg PO Q6HR Qty: 30 0RF docusate sodium 100 mg Capsule 200 mg PO BID 30 Days Qty: 120 1RF ibuprofen 600 mg Tablet 600 mg PO Q6HR PRN (Reason: Pain, Mild (1-3)) Qty: 60 1RF Referrals: Mari Holt MD [Primary Care Provider] - Stand Alone Forms: Patient Portal/API/Survey
== END 2024-05-07 12:05 | disposition home or self-care (01) ==
PROVIDERS: Emergency Provider Student in an Organized Health Care Education/Training Program; PCP Student in an Organized Health Care Education/Training Program
DX: K64.9 Unspecified hemorrhoids (principal)
CPT/HCPCS: 99281